=== PATIENT | male | born 1960 | race Caucasian/White ===

== ENCOUNTER 2022-04-15 17:51 | Emergency (ER) | payer BC ==
--- NOTE | 2022-04-15 20:18 | ED ---
General Adult HPI - General Source: patient, RN notes reviewed, old records reviewed Mode of arrival: ambulatory Limitations: no limitations <Adrian Craig - Last Filed: 04/15/22 20:48> <Braden Page - Last Filed: 04/15/22 22:34> - General Chief complaint: Extremity Problem,Nontraumatic Stated complaint: Hypertension Time Seen by Provider: 04/15/22 19:54 - History of Present Illness Initial comments: 61 yo male presenting from outpatient setting for evaluation of right foot pain, swelling and erythema. He also developed a pain in his right groin. He has had subjective chills. No measured fever. He has remote injury to the right foot from a lawnmower accident as a child. He denies any recent trauma. He had noted some bruising to the area as well as erythema and warmth. (Adrian Craig) - Related Data Home Medications Medication Instructions Recorded Confirmed Cetirizine HCl [Zyrtec] 10 mg PO HS 04/15/22 04/15/22 amLODIPine [Norvasc] 5 mg PO HS 04/15/22 04/15/22 Previous Rx's Medication Instructions Recorded Sulfamethox-Tmp 800-160Mg [Bactrim 2 each PO Q12HR #28 tab 04/15/22 Ds] Allergies Allergy/AdvReac Type Severity Reaction Status Date / Time Penicillins Allergy Rash/Hives Verified 04/15/22 21:01 Review of Systems ROS Other: All systems not noted in ROS Statement are negative. <Adrian Craig - Last Filed: 04/15/22 20:48> ROS Other: All systems not noted in ROS Statement are negative. <Braden Page - Last Filed: 04/15/22 22:34> ROS Statement: Those systems with pertinent positive or pertinent negative responses have been documented in the HPI. Past Medical History Past Medical History: Asthma, Hypertension History of Any Multi-Drug Resistant Organisms: None Reported Past Surgical History: No Surgical Hx Reported Past Psychological History: No Psychological Hx Reported Smoking Status: Never smoker Past Alcohol Use History: Rare Past Drug Use History: None Reported <Adrian Craig - Last Filed: 04/15/22 20:48> General Exam Limitations: no limitations General appearance: alert, in no apparent distress Head exam: Present: atraumatic, normocephalic Eye exam: Present: normal appearance ENT exam: Present: normal exam Neck exam: Present: normal inspection. Absent: tenderness, meningismus Respiratory exam: Present: normal lung sounds bilaterally. Absent: respiratory distress, wheezes Cardiovascular Exam: Present: regular rate, normal rhythm GI/Abdominal exam: Present: soft. Absent: distended, tenderness Extremities exam: Present: tenderness, other (Erythema, ecchymosis from the foot to the mid calf with associated soft tissue swelling. No crepitus. No drainable abscess noted. There is some tenderness in the right groin as well.) Neurological exam: Present: alert, oriented X3, CN II-XII intact. Absent: motor sensory deficit Psychiatric exam: Present: normal affect, normal mood Skin exam: Present: warm, dry, intact <Adrian Craig - Last Filed: 04/15/22 20:48> Course <Adrian Craig - Last Filed: 04/15/22 20:48> Vital Signs 04/15/22 04/15/22 19:37 21:34 Temperature 98.2 F Pulse Rate 95 76 Respiratory 18 16 Rate Blood Pressure 137/83 117/80 O2 Sat by Pulse 97 96 Oximetry - Reevaluation(s) Reevaluation #1: 04/15/22 2100 Patient care signed out to Dr. Page and shift change awaiting laboratory testing and imaging. (Adrian Craig) Medical Decision Making - Lab Data Result diagrams: 04/15/22 20:12 04/15/22 20:12 <Braden Page - Last Filed: 04/15/22 22:34> - Lab Data Lab Results 04/15/22 04/15/22 04/15/22 Range/Units 20:12 20:12 20:12 WBC 3.4 L (3.8-10.6) k/uL RBC 4.59 (4.30-5.90) m/uL Hgb 15.8 (13.0-17.5) gm/dL Hct 46.2 (39.0-53.0) % MCV 100.7 H (80.0-100.0) fL MCH 34.5 (25.0-35.0) pg MCHC 34.3 (31.0-37.0) g/dL RDW 12.8 (11.5-15.5) % Plt Count 121 L (150-450) k/uL MPV 7.4 Neutrophils % 65 % Lymphocytes % 27 % Monocytes % 4 % Eosinophils % 1 % Basophils % 0 % Neutrophils # 2.2 (1.3-7.7) k/uL Lymphocytes # 0.9 L (1.0-4.8) k/uL Monocytes # 0.1 (0-1.0) k/uL Eosinophils # 0.0 (0-0.7) k/uL Basophils # 0.0 (0-0.2) k/uL Manual Slide Review Performed PT 10.2 (9.0-12.0) sec INR 0.9 (<1.2) APTT 25.5 (22.0-30.0) sec Sodium 134 L (137-145) mmol/L Potassium 4.5 (3.5-5.1) mmol/L Chloride 104 (98-107) mmol/L Carbon Dioxide 19 L (22-30) mmol/L Anion Gap 11 mmol/L BUN 16 (9-20) mg/dL Creatinine 1.05 (0.66-1.25) mg/dL Est GFR (CKD-EPI)AfAm >90 (>60 ml/min/1.73 sqM) Est GFR (CKD-EPI)NonAf 78 (>60 ml/min/1.73 sqM) Glucose 117 H (74-99) mg/dL Plasma Lactic Acid Yamil (0.7-2.0) mmol/L Calcium 8.4 (8.4-10.2) mg/dL Magnesium 2.2 (1.6-2.3) mg/dL Total Bilirubin 1.1 (0.2-1.3) mg/dL AST 50 (17-59) U/L ALT 33 (4-49) U/L Alkaline Phosphatase 69 (38-126) U/L Total Protein 7.6 (6.3-8.2) g/dL Albumin 4.3 (3.5-5.0) g/dL 04/15/22 Range/Units 20:12 WBC (3.8-10.6) k/uL RBC (4.30-5.90) m/uL Hgb (13.0-17.5) gm/dL Hct (39.0-53.0) % MCV (80.0-100.0) fL MCH (25.0-35.0) pg MCHC (31.0-37.0) g/dL RDW (11.5-15.5) % Plt Count (150-450) k/uL MPV Neutrophils % % Lymphocytes % % Monocytes % % Eosinophils % % Basophils % % Neutrophils # (1.3-7.7) k/uL Lymphocytes # (1.0-4.8) k/uL Monocytes # (0-1.0) k/uL Eosinophils # (0-0.7) k/uL Basophils # (0-0.2) k/uL Manual Slide Review PT (9.0-12.0) sec INR (<1.2) APTT (22.0-30.0) sec Sodium (137-145) mmol/L Potassium (3.5-5.1) mmol/L Chloride (98-107) mmol/L Carbon Dioxide (22-30) mmol/L Anion Gap mmol/L BUN (9-20) mg/dL Creatinine (0.66-1.25) mg/dL Est GFR (CKD-EPI)AfAm (>60 ml/min/1.73 sqM) Est GFR (CKD-EPI)NonAf (>60 ml/min/1.73 sqM) Glucose (74-99) mg/dL Plasma Lactic Acid Yamil 1.2 (0.7-2.0) mmol/L Calcium (8.4-10.2) mg/dL Magnesium (1.6-2.3) mg/dL Total Bilirubin (0.2-1.3) mg/dL AST (17-59) U/L ALT (4-49) U/L Alkaline Phosphatase (38-126) U/L Total Protein (6.3-8.2) g/dL Albumin (3.5-5.0) g/dL Disposition <Adrian Craig - Last Filed: 04/15/22 20:48> Is patient prescribed a controlled substance at d/c from ED?: No <Braden Page - Last Filed: 04/15/22 22:34> Clinical Impression: Cellulitis Disposition: HOME SELF-CARE Condition: Good Instructions (If sedation given, give patient instructions): Cellulitis (ED) Additional Instructions: As we discussed, follow-up to ensure that the lymph node resolves as the juliana lulitis improves. He may require biopsy if it persists. Prescriptions: Sulfamethox-Tmp 800-160Mg [Bactrim Ds] 2 each PO Q12HR #28 tab Referrals: None,Stated [Primary Care Provider] - 1-2 days
[2022-04-15 20:45] LABS: Basophils % (A) 0 %; Eosinophils % (A) 1 %; HCT 46.2 % (39.0-53.0); HGB 15.8 gm/dL (13.0-17.5); Lymphocytes # (A) 0.9 k/uL (1.0-4.8); Lymphocytes % (A) 27 %; MCH 34.5 pg (25.0-35.0); MCHC 34.3 g/dL (31.0-37.0); MCV 100.7 fL (80.0-100.0); Mean Platelet Volume 7.4; Monocytes # (A) 0.1 k/uL (0-1.0); Monocytes % (A) 4 %; Neutrophils # (A) 2.2 k/uL (1.3-7.7); Neutrophils % (A) 65 %; Platelet Count 121 k/uL (150-450); RBC 4.59 m/uL (4.30-5.90); RDW 12.8 % (11.5-15.5); WBC 3.4 k/uL (3.8-10.6)
[2022-04-15] MEDS ORDERED: cefTRIAXone IN SWFI 1,000 MG/10 ML SYRINGE IVP STA ×2 (20:48→20:50)
--- NOTE | 2022-04-15 20:52 | XR ---
EXAMINATION TYPE: XR tibia fibula RT DATE OF EXAM: 04/15/2022 COMPARISON: NONE HISTORY: Pain and swelling TECHNIQUE: 4 views FINDINGS: There is deformity of the distal tibia related to old healed fracture. There is a valgus de formity of the ankle joint. There is severe narrowing of the ankle joint space. No acute fracture see n. The knee joint appears intact. 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 No acute fracture seen.
--- NOTE | 2022-04-15 20:54 | XR ---
EXAMINATION TYPE: XR ankle complete RT DATE OF EXAM: 04/15/2022 COMPARISON: NONE HISTORY: Pain and swelling TECHNIQUE: 3 views FINDINGS: There is evidence of old healed distal tibia fracture with valgus deformity of the ankle stefan int there is moderate narrowing of the ankle joint space. No acute fracture seen. There is also defor mity of the talus. IMPRESSION: Significant posttraumatic osteoarthritis in the ankle joint. No acute fracture seen.
[2022-04-15 20:56] LABS: ALT 33 U/L (4-49); AST 50 U/L (17-59); African American GFR (CKD) >90 (>60 ml/min/1.73 sqM); Albumin 4.3 g/dL (3.5-5.0); Alkaline Phosphatase 69 U/L (38-126); Anion Gap 11 mmol/L; Blood Urea Nitrogen 16 mg/dL (9-20); Calcium 8.4 mg/dL (8.4-10.2); Carbon Dioxide 19 mmol/L (22-30); Chloride 104 mmol/L (98-107); Glucose 117 mg/dL (74-99); Magnesium 2.2 mg/dL (1.6-2.3); Non-African American GFR(CKD) 78 (>60 ml/min/1.73 sqM); Potassium 4.5 mmol/L (3.5-5.1); Sodium 134 mmol/L (137-145); Total Bilirubin 1.1 mg/dL (0.2-1.3); Total Protein 7.6 g/dL (6.3-8.2)
[2022-04-15 20:58] LABS: INR 0.9 (<1.2); Partial Thromboplastin Time 25.5 sec (22.0-30.0); Prothrombin Time 10.2 sec (9.0-12.0)
--- NOTE | 2022-04-15 22:06 | US ---
EXAMINATION TYPE: US venous doppler duplex LE RT DATE OF EXAM: 04/15/2022 10:00 PM COMPARISON: NONE CLINICAL HISTORY: pain/swelling. right leg pain SIDE PERFORMED: right TECHNIQUE: The lower extremity deep venous system is examined utilizing real time linear array sonog julianna with graded compression, doppler sonography and color-flow sonography. VESSELS IMAGED: Common Femoral Vein Deep Femoral Vein Greater Saphenous Vein * Femoral Vein Popliteal Vein Small Saphenous Vein * Proximal Calf Veins (* superficial vessels) Right Leg: lymph nodes right groin, largest = 4.1 x 1.5 x 3.7cm. no evidence of DVT at this time. ro uleaux flow noted IMPRESSION: There are multiple enlarged right inguinal lymph nodes. No evidence of any fluid collect ion. No evidence of deep vein thrombosis in the right leg.
[2022-04-15 23:13] VITALS: BP 134/78; PULSE 68; RESP 18; TEMP 99.7
== END 2022-04-15 23:16 | disposition home or self-care (01) ==
LOC: EC 17:51
DX: L03.115 Cellulitis of right lower limb (principal); J45.909 Unspecified asthma, uncomplicated; I10 Essential (primary) hypertension; Z88.0 Allergy status to penicillin
CPT/HCPCS: 36415; 80053; 83605; 83735; 85025; 85610; 85730; 87040; 73590; 73610; 93971; 99284; 96374; J0696